=== PATIENT | male | born 1985 | race Caucasian/White ===

== ENCOUNTER 2016-10-11 00:14 | Emergency (ER) | payer OTHER ==
[2016-10-11] MEDS: CEPHALEXIN 250 MG CAPSULE PO ONE (00:25)
[2016-10-11] MEDS: HYDROcodone /APAP 5/325 1 EACH TABLET PO ONE (00:40)
[2016-10-11 01:01] VITALS: BP 139/84
--- NOTE | 2016-10-11 01:03 | ED Physician Documentation ---
General Adult - HISTORIAN Historian: patient - HPI Stated Complaint: dental pain Chief Complaint: General Adult Onset: days ago Timing: still present Severity: moderate Further Comments: yes (Pt is a 31 yo male with pain in his upper L jaw. Pt has poor dentition and dental carries in his upper L molars. Pt is concerned about a bony prominence in his upper jaw above the gumline (lateral to tooth).) - ROS CONST: no problems EYES/ENT: none CVS/RESP: none GI/: none MS/SKIN/LYMPH: none - PAST HX Past History: other (ortho surgery) Allergies/Adverse Reactions: Allergies Allergy/AdvReac Type Severity Reaction Status Date / Time No Known Allergies Allergy Verified 10/11/16 00:25 Home Medications: Ambulatory Orders Medication Instructions Recorded NK [NK] 10/11/16 - SOCIAL HX Smoking History: cigarettes - FAMILY HX Family History: No - REVIEWED ASSESSMENTS Nursing Assessment Reviewed: Yes Vitals Reviewed: Yes Progress - Progress Progress: Bony prominence above outer gumline (ie gumline lateral to the tooth) significantly larger on L than similar prominence on R may be an anatomical varient. Pt states this is tender. Discussed possible panorex x-ray or CT scan to evaluate definitively, but pain may be due to dental caries, with pain radiating to upper jaw. Will tx with abx and pain med. Pt will f/u with dentist or oral surgeon if sx persist with tx. Rx Penicillin VK 500 mg. Take one every 8 hrs for 10 days. Rx [place] (5/325). Take one or two every 4 to 6 hrs as needed for moderate to severe pain. General Adult Physical Exam - PHYSICAL EXAM GENERAL APPEARANCE: moderate distress EENT: other (poor dentition, dental caries in upper L molars. Pt has a bony prominence above the gumline (outer gumline, ie lateral to tooth) that is much larger on the L than on the right. Pt states this is tender.) NECK: normal inspection, supple RESPIRATORY: no resp distress, chest non-tender BACK: normal inspection SKIN: warm/dry, normal color EXTREMITIES: non-tender, normal range of motion, no evidence of injury NEURO: oriented X3, motor nml Discharge Clincal Impression: dental/jaw pain Home Medications: Ambulatory Orders NK [NK] 10/11/16 Condition: Good Disposition: 01 HOME, SELF-CARE Decision to Admit: NO Decision Time: 00:46
== END 2016-10-11 00:45 | disposition home or self-care (01) ==
LOC: ED 00:14
DX: K02.9 Dental caries, unspecified (principal)
CPT/HCPCS: 99282; A9270-GY